=== PATIENT | male | born 1970 | race Caucasian/White ===

== ENCOUNTER 2019-03-27 10:47 | Outpatient (CLI) | payer OTHER, SELFPAY ==
--- NOTE | ~2019-03-27 | XR_ITS ---
EXAMINATION: XR chest 2V EXAM DATE: 03/27/2019 11:11 INDICATION: Shortness of breath, chest pain. TECHNIQUE: Frontal and lateral projections of the chest obtained and reviewed. Comparison is made to prior examination from 07/27/2015. FINDINGS: The lungs are clear. There are no pleural effusions. The cardiomediastinal silhouette is within normal limits. There is no pneumothorax suspected. Mild thoracic spondylosis. IMPRESSION: No acute cardiopulmonary findings. Reviewed, dictated and finalized at location A. LAINT OPERATOR
[2019-03-27 11:06] LABS: Hematocrit 41.7 % (40.0-54.0); Hemoglobin 14.3 g/dL (14.0-18.0); Mean Corpuscular HGB Conc 34.3 g/dL (32.0-36.0); Mean Corpuscular Hemoglobin 29.5 pg (27.0-31.0); Mean Platelet Volume 8.9 fl (8.7-11.0); Platelet Count Result 205 K/mm3 (150-420); Red Blood Count 4.85 M/mm3 (4.70-6.10); Red Cell Distribution Width 12.2 % (11.6-14.4); White Blood Count 3.6 K/mm3 (4.8-10.8)
[2019-03-27 11:25] LABS: D Dimer 0.24 mg/L (0.19-0.50)
[2019-03-27 11:36] LABS: Band Neutrophils Percent 0 % (0-6); Basophils Percent Manual 0 % (0-1); Eosinophils Percent Manual 0 % (1-6); Lymphocytes Absolute Manual 1.22 K/mm3 (1.1-4.5); Lymphocytes Percent Manual 34 % (18-44); Monocytes Absolute Manual 0.57 K/mm3 (0.1-0.90); Monocytes Percent Manual 16 % (3-9); Neutrophils Percent Manual 50 % (46-73); Total Cells Counted 100
[2019-03-27 11:47] LABS: Alanine Aminotransferase 79 U/L (16-63); Albumin Level 4.1 g/dL (3.4-5.0); Alkaline Phosphatase 84 U/L (46-116); Amylase 28 U/L (25-115); Anion Gap 12.3 mmol/L (7-16); Aspartate Amino Transferase 36 U/L (15-37); Bilirubin,Total 0.7 mg/dL (0.00-1.00); Blood Urea Nitrogen 16 mg/dL (7-18); Calcium 9.1 mg/dL (8.5-10.1); Carbon Dioxide 28 mmol/L (21-32); Chloride 103 mmol/L (98-108); Creatine Kinase 111 U/L (39-308); Estimated Glomerular Filt Rate > 60; Glucose 137 mg/dL (70-99); Lipase 78 U/L (73-393); Osmolality Calculated 291 mOsm/kg (285-295); Potassium 4.3 mmol/L (3.5-5.1); Sodium 139 mmol/L (136-145); Total Protein 7.7 g/dL (6.4-8.2)
[2019-03-27 11:50] LABS: Troponin I < 0.02 ng/mL (0.00-0.056)
[2019-03-27 11:58] LABS: Platelet Estimate Adequate (Adequate)
== END 2019-03-27 10:48 | disposition home or self-care (01) ==
PROVIDERS: PCP Internal Medicine; Visit Provider Nurse Practitioner Family
DX: R06.02 Shortness of breath (principal); R07.9 Chest pain, unspecified
CPT/HCPCS: 36415; 71046; 80053; 82150; 82550; 82553; 83690; 84484; 85025; 85380

== ENCOUNTER 2019-04-16 08:48 | Outpatient (CLI) | payer OTHER, SELFPAY | END 2019-04-16 08:49 | disposition home or self-care (01) | LOC: CHSCARD 08:50 | PROVIDERS: PCP Internal Medicine; Visit Provider Internal Medicine Endocrinology, Diabetes & Metabolism | DX: R06.09 Other forms of dyspnea (principal) | CPT/HCPCS: 94060; 94726; 94729 ==

== ENCOUNTER → 2020-01-11 07:50 | Outpatient (CLI) | payer OTHER, SELFPAY ==
--- NOTE | ~2020-01-11 | US_ITS ---
US abdomen complete EXAMINATION: US Abdomen Complete INDICATION: Viral hepatitis PROCEDURE: Realtime High Resolution abdomen ultrasound. COMPARISON: CT dated 05/12/2007 FINDINGS: Gallbladder within normal limits. No gallstones, pericholecystic fluid, gallbladder wall t hickening or biliary dilatation. Common bile duct measures 3 mm. There are multiple echogenic masses in the liver, largest measuring approximately 2.4 cm greatest dim ension. These were not definitely appreciated on prior CT examination. Pancreas within normal limits. Pancreatic tail is obscured by bowel gas. Spleen is unremarkeable. Renal echotexture is within nor mal limits bilaterally without hydronephrosis, contour deforming mass or renal stone. Right kidney me asures 12.6 cm. Left kidney measures 11.9 cm. Visualized aspects of the aorta and IVC are within normal limits. Portal vein is patent. No sonograph ic Hagen's sign indicated by the technologist. IMPRESSION: 1: Multiple echogenic foci of the liver parenchyma. Differential diagnosis includes benign etiology s uch as hemangiomas versus metastatic disease. Recommend correlation with dynamic contrast-enhanced CT or MRI. Reviewed, dictated and finalized at location A. A SENIOR RECRUITER IMPRESSION: 1: Multiple echogenic foci of the liver parenchyma. Differential diagnosis incl udes benign etiology such as hemangiomas versus metastatic disease. Recommend c orrelation with dynamic contrast-enhanced CT or MRI.
== END ==
PROVIDERS: Visit Provider Internal Medicine Endocrinology, Diabetes & Metabolism
DX: B18.2 Chronic viral hepatitis C (principal)
CPT/HCPCS: 76700

== ENCOUNTER → 2020-01-25 11:41 | Outpatient (CLI) | payer OTHER, SELFPAY ==
--- NOTE | ~2020-01-25 | MR_ITS ---
EXAMINATION: MR abdomen wo/w con DATE: 01/25/2020 13:09 INDICATION: Liver masses. Chronic hepatitis C. TECHNIQUE: Magnetic resonance imaging (MRI) of the abdomen was performed without and with 18 mL Multi Caitlin intravenous contrast. Sequences included coronal T2-weighted FS FSE, coronal and axial FS FIEST A, axial T2-weighted FSE, coronal LAVA-flex, axial STIR FSE, axial DWI, axial dual-echo T1-weighted F SPGR, and axial LAVA. Postcontrast sequences included coronal LAVA-flex and a time course of axial LA VA. COMPARISON: Abdomen ultrasound 01/11/2020, CT abdomen and pelvis 05/12/2007 FINDINGS: There are 3 masses in the liver measuring up to 2.9 cm with delayed interrupted peripheral puddling o f contrast without washout, consistent with hemangiomas. The gallbladder, spleen, pancreas, adrenal g lands, and kidneys are normal. There are no dilated loops of bowel. There are no pathologically enlar ged lymph nodes. There is no free intraperitoneal fluid. IMPRESSION: 1. 3 liver masses, consistent with hemangiomas. Reviewed, dictated and finalized at location B. KDOWN MAN
[2020-01-25 12:33] LABS: Estimated Glomerular Filt Rate > 60
== END ==
PROVIDERS: Visit Provider Internal Medicine Endocrinology, Diabetes & Metabolism
DX: R93.2 Abnormal findings on diagnostic imaging of liver and biliary tract (principal)
CPT/HCPCS: 74183; A9577

== ENCOUNTER 2023-12-16 02:13 | Day surgery (SDC) | payer OTHER, SELFPAY ==
[2023-12-03 13:32] VITALS: BMI 30.4
--- NOTE | 2023-12-15 15:17 | WPDANESEPP ---
Anes - Eval Pre Procedure Procedure: Operation Date: 12/16/23 13:30 Proposed Procedures p Screening Colonoscopy - Emanuel Lisa MD Date/Time: 12/15/23 15:17 Pre Op Diagnosis: neoplasm screening Patient Data Age: 53 Gender: M Height: 1.8 m Weight: 99 kg Allergies Allergy/AdvReac Type Severity Reaction Status Date / Time No Known Allergies Allergy Verified 12/03/23 13:12 Home Medications Medication Instructions Recorded Confirmed Type atorvastatin 20 mg tablet 20 mg PO DAILY 12/03/23 12/03/23 History insulin lispro 100 unit/mL See Rx Instructions .Route .COMPLEX 12/03/23 12/03/23 History subcutaneous solution semaglutide 0.25 mg or 0.5 mg (2 2 mg subcut WEEKLY 12/03/23 12/03/23 History mg/3 mL) subcutaneous pen injector (Ozempic) Patient hx anesthesia problems: none Family hx anesthesia problems: none Results Review: All pre-operative results and documents have been reviewed as part of the pre-operative evaluation. [facility] Social History Social History Smoking status: Never smoker Alcohol intake: current Drinks per week: 6 Substance use: never Living arrangements: with family Spiritual care concerns: No Exam Day of Procedure 12/15/23 15:17
[2023-12-16 10:00] VITALS: BP 123/93; PULSE 99; RESP 16; TEMP 36.3; O2SAT 98; BMI 31.1
[2023-12-16] MEDS: LACTATED RINGERS 1,000 ML 150 ML IV CONT (10:09)
--- NOTE | 2023-12-16 10:40 | P.PNAN_ITS ---
Anes - Initial Pre Proc Eval Procedure: Operation Date: 12/16/23 13:30 Proposed Procedures p Screening Colonoscopy - Emanuel Lisa MD Date/Time: 12/16/23 10:40 Surgeon: Emanuel Lisa MD Pre Op Diagnosis: neoplasm screening Patient Data Age: 53 Gender: M Height: 1.8 m Weight: 101.1 kg Last Vital Signs Temp 36.3 C L 12/16/23 10:00 Pulse 99 12/16/23 10:00 Resp 16 12/16/23 10:00 BP 123/93 H 12/16/23 10:00 Pulse Ox 98 12/16/23 10:00 O2 Del Method Room Air 12/16/23 10:00 Allergies Allergy/AdvReac Type Severity Reaction Status Date / Time No Known Allergies Allergy Verified 12/16/23 09:58 Home Medications Medication Instructions Recorded Confirmed Type atorvastatin 20 mg tablet 20 mg PO DAILY 12/03/23 12/16/23 History insulin lispro 100 unit/mL See Rx Instructions .Route .COMPLEX 12/03/23 12/16/23 History subcutaneous solution semaglutide 0.25 mg or 0.5 mg (2 2 mg subcut WEEKLY 12/03/23 12/16/23 History mg/3 mL) subcutaneous pen injector (Ozempic) Patient hx anesthesia problems: none Family hx anesthesia problems: none Results Review: All pre-operative results and documents have been reviewed as part of the pre- operative evaluation. [facility] Social History Social History Smoking status: Never smoker Alcohol intake: current Drinks per week: 6 Substance use: never Living arrangements: with family Spiritual care concerns: No Anes - Eval Final PreProcedure Day of Procedure 12/16/23 10:40 Patient weight: obese Heart: regular rate and rhythm Lungs: clear to auscultation Airway: Mallampati scale class II Neurological: alert and oriented Last oral intake: >/= 8 hours ASA classification: III Emergent: no Anesthetic plan: proceed Anesthesia type and monitoring: general GIVS and standard monitoring Results Review: All pre-operative results and documents have been reviewed as part of the pre- operative evaluation. Informed Consent: The patient's anesthetic plan and its attendant risks and benefits were discussed with the patient/family/POA. Questions were solicited and answers provided to the satisfaction of the patient/family/POA.
--- NOTE | 2023-12-16 10:45 | PM.HPGS ---
History of Present Illness History of Present Illness Consent: Risks, benefits, and alternatives have been discussed and questions answered. Patient agrees to proceed with procedure. Chief complaint: neoplasm screening Narrative: Robby Bañuelos is a 53 year old male here for screening colonoscopy, last one about 10 years ago Review of Systems Review of Systems: All systems reviewed & are unremarkable except as noted in HPI and below PMFSH Past Medical History Medical History (Updated 12/16/23 @ 10:46 by Emanuel Lisa MD) Colon cancer screening Social History Social History Smoking status: Never smoker Alcohol intake: current Drinks per week: 6 Substance use: never Living arrangements: with family Spiritual care concerns: No Meds Home Medications and Allergies Home Medications Medication Instructions Recorded Confirmed Type atorvastatin 20 mg tablet 20 mg PO DAILY 12/03/23 12/16/23 History insulin lispro 100 unit/mL See Rx Instructions .Route .COMPLEX 12/03/23 12/16/23 History subcutaneous solution semaglutide 0.25 mg or 0.5 mg (2 2 mg subcut WEEKLY 12/03/23 12/16/23 History mg/3 mL) subcutaneous pen injector (Ozempic) Allergies Allergy/AdvReac Type Severity Reaction Status Date / Time No Known Allergies Allergy Verified 12/16/23 09:58 Vital Signs Vital Signs - 24 hr 12/16/23 10:00 Temperature 97.3 F L Pulse Rate 99 Respiratory Rate 16 Blood Pressure 123/93 H Pulse Oximetry 98 Oxygen Delivery Room Air Exam Const: General: comfortable and no acute distress HENMT: Face/Nose/Sinus: Normal nares present Eyes: General: appearance normal, both eyes and all related structures Neck: Neck: no JVD Resp: Auscultation: clear to auscultation bilaterally Cardio: Rate: regular rate Rhythm: regular rhythm GI: Inspection: non-distended GI Palp: Yes Soft to palpation Skin: General skin exam: normal color Neuro: General: gait normal Speech: normal speech Extrem: General: normal to inspection Psych: Mental Status: mental status grossly normal Assessment and Plan Assessment and plan (1) Colon cancer screening: Code(s): Z12.11 - Encounter for screening for malignant neoplasm of colon Status: Acute Assessment and Plan: colonoscopy
[2023-12-16 11:00] VITALS: BP 105/82; PULSE 86; RESP 18; O2SAT 96
[2023-12-16 11:10] VITALS: BP 102/75; PULSE 85; RESP 15; O2SAT 95
--- NOTE | 2023-12-16 11:14 | SUR.PHASEII ---
Addendum entered by Sahara Strauss RN 12/16/23 11:34: Dr Mata notified of blood sugar. No new orders received. Original Note: Pt blood sugar 311 per Dexcom. States he took his insulin pump off last night. States he has his pump with him and he will re-apply it.
[2023-12-16 11:20] VITALS: BP 135/88; PULSE 85; RESP 20; O2SAT 98
== END 2023-12-16 11:31 | disposition home or self-care (01) ==
PROVIDERS: PCP Internal Medicine Endocrinology, Diabetes & Metabolism; Referring Provider Internal Medicine Endocrinology, Diabetes & Metabolism; Visit Provider Internal Medicine Gastroenterology
PROC: 0DJD8ZZ Inspection of Lower Intestinal Tract, Via Natural or Artificial Opening Endoscopic (ICD-10-PCS; CPT 45378; principal; 2023-12-16 13:30)
DX: Z12.11 Encounter for screening for malignant neoplasm of colon (principal); K64.8 Other hemorrhoids; K57.30 Diverticulosis of large intestine without perforation or abscess without bleeding; E66.9 Obesity, unspecified; Z68.31 Body mass index [BMI] 31.0-31.9, adult; Z79.4 Long term (current) use of insulin; Z79.85 Long-term (current) use of injectable non-insulin antidiabetic drugs
CPT/HCPCS: 45378; J2003; J2704; J7120